=== PATIENT | male | born 1995 | race Caucasian/White ===

== ENCOUNTER 2018-04-22 13:22 | Emergency (ER) | payer OTHER ==
[~2018-04-22] VITALS: Ht 172.7 cm; Wt 86.4 kg
[2018-04-22] MEDS ORDERED: IBUP-1114 PO (13:28)
[2018-04-22 14:20] LABS: INFLUENZA A AMPLIFICATION NEGATIVE (NEGATIVE); INFLUENZA B AMPLIFICATION NEGATIVE (NEGATIVE)
[2018-04-22] MEDS ORDERED: AUGM875T28 PO (15:14)
[2018-04-22] MEDS ORDERED: PSEU30SY3 PO (15:19)
[2018-04-22] MEDS ORDERED: NETI1KIT (15:20)
[2018-04-22] MEDS ORDERED: FLON1SPR NARES (15:20)
[2018-04-22 15:26] VITALS: BP 116/75
== END 2018-04-22 15:31 | disposition home or self-care (01) ==
LOC: M ED 13:22
DX: J01.90 Acute sinusitis, unspecified (principal)

== ENCOUNTER 2018-05-27 01:32 | Emergency (ER) | payer OTHER ==
[~2018-05-27] VITALS: Ht 172.7 cm; Wt 86.4 kg
[~2018-05-27 01:32] MED LIST: AUGM875T28 PO; FLON1SPR NARES; IBUP-1114 PO; NETI1KIT; PSEU30SY3 PO
--- NOTE | 2018-05-27 02:38 | REPVR ---
EXAM: CT Head Without Contrast EXAM DATE/TIME: 05/27/2018 2:00 AM CLINICAL HISTORY: 23 years old, male; Injury or trauma; Fall; Additional info: Syncopal episode TECHNIQUE: Imaging protocol: Axial computed tomography images of the head/brain without contrast. Radiation optimization: All CT scans at this facility use at least one of these dose optimization techniques: automated exposure control; mA and/or kV adjustment per patient size (includes targeted exams where dose is matched to clinical indication); or iterative reconstruction. COMPARISON: No relevant prior studies available. FINDINGS: Brain: Normal. No hemorrhage. No significant white matter disease. No edema. Ventricles: Normal. No ventriculomegaly. Bones/joints: Asymmetry of the calvarium consistent with variant with thinning and outward protrusion of the anterior left parietal bone adjacent to the coronal suture. Sinuses: Visualized sinuses are unremarkable. No acute sinusitis. Mastoid air cells: Visualized mastoid air cells are unremarkable. No mastoid effusion. Soft tissues: Unremarkable. IMPRESSION: Negative noncontrast head CT. Electronically signed by: Cachorro Delacruz On 05/27/2018 02:38:21 AM
[2018-05-27 03:03] LABS: BASO # 0.1 10^3/uL (0.0-0.2); BASO % 1.2 % (0.0-1.0); EOS # 0.3 10^3/uL (0.0-0.50); EOS % 3.9 % (0.0-3.0); HEMATOCRIT 44.8 % (42.0-52.0); HEMOGLOBIN 15.1 g/dl (13.5-17.5); LYMPH # 3.4 10^3/uL (1.5-6.5); LYMPH % 40.6 % (24.0-44.0); MEAN CORPUSCULAR HEMOGLOBIN 29.5 pg (27.0-33.0); MEAN CORPUSCULAR HGB CONC 33.7 g/dl (32.0-36.5); MEAN CORPUSCULAR VOLUME 87.7 fl (80.0-96.0); MONO # 0.7 10^3/uL (0.0-0.8); MONO % 8.9 % (0.0-5.0); NEUTROPHILS # 3.8 10^3/uL (1.8-7.7); NEUTROPHILS % 45.2 % (36.0-66.0); PLATELET COUNT, AUTOMATED 224 10^3/uL (150-450); RED BLOOD COUNT 5.11 10^6/uL (4.30-6.10); WHITE BLOOD COUNT 8.3 10^3/uL (4.0-10.0)
[2018-05-27 03:40] LABS: BLOOD UREA NITROGEN 16 MG/DL (7-18); CALCIUM LEVEL 8.7 MG/DL (8.5-10.1); CARBON DIOXIDE LEVEL 30 MEQ/L (21-32); CHLORIDE LEVEL 107 MEQ/L (98-107); CREATININE FOR GFR 1.08 MG/DL (0.70-1.30); ETHYL ALCOHOL (ETHANOL) < 0.003 % (0.000-0.010); GLOMERULAR FILTRATION RATE > 60.0 (>60); GLUCOSE, FASTING 100 MG/DL (70-100); POTASSIUM SERUM 3.9 MEQ/L (3.5-5.1); SODIUM LEVEL 143 MEQ/L (136-145)
[2018-05-27 03:53] LABS: AMPHETAMINES LEVEL URINE NEGATIVE (NEGATIVE); BARBITURATES URINE NEGATIVE (NEGATIVE); BENZODIAZEPINES URINE NEGATIVE (NEGATIVE); CANNABINOIDS URINE NEGATIVE (NEGATIVE); COCAINE METABOLITE URINE NEGATIVE (NEGATIVE); METHADONE URINE NEGATIVE (NEGATIVE); OPIATES URINE NEGATIVE (NEGATIVE); PHENCYCLIDINE URINE NEGATIVE (NEGATIVE)
[2018-05-27] MEDS ORDERED: NEOSPORIN OINT 0.9 GM PKT (FLOOR STOCK) TOP ONE (06:15)
[2018-05-27] MEDS ORDERED: ACETAMINOPHEN TAB 650MG DOSE (2X325MG) PO ONE (06:15)
[2018-05-27 06:45] VITALS: BP 100/54
--- NOTE | 2018-05-27 07:37 | ECGEPIP ---
Stationary ECG Study [facility] - ED Test Date: 2018-05-27 Pat Name: CRAIG HINTON Department: Room: - Gender: M Hourly Sign Language Interpreter: gt : 1995 Requested By: RUCHI CALZADA Order Number: [id number] Reading MD: Brandon Egan Measurements Intervals [place] Rate: 75 P: 25 WY: 131 QRS: 14 QRSD: 102 T: 14 QT: 355 QTc: 399 Interpretive Statements SINUS RHYTHM WITH MARKED SINUS ARRHYTHMIA BENIGN EARLY REPOLARIZATION NO PRIORS FOR COMPARISON Electronically Signed On 05-27-2018 7:37:12 EDT by Brandon Egan
== END 2018-05-27 07:10 | disposition home or self-care (01) ==
LOC: M ED 01:32
DX: S09.90XA Unspecified injury of head, initial encounter (principal); X58.XXXA Exposure to other specified factors, initial encounter; Y92.89 Other specified places as the place of occurrence of the external cause
CPT/HCPCS: 36415; 70450; 80048; 80307; 84443; 85025; 93005; 93041; 94760; 99285; G0480

== ENCOUNTER 2018-08-28 21:36 | Emergency (ER) | payer OTHER ==
[~2018-08-28] VITALS: Ht 175.3 cm; Wt 86.4 kg
[2018-08-28] MEDS ORDERED: AMIT50TA PO (21:41)
[2018-08-28] MEDS ORDERED: diphenhydrAMINE INJ 50MG/ML VIAL (J1200) IV STA (22:37)
[2018-08-28] MEDS ORDERED: METOCLOPRAMIDE INJ 10MG/2ML VIAL (J2765) IV ONE (22:45)
[2018-08-28] MEDS ORDERED: NS 1,000 ML IV ONE (22:45)
[2018-08-28] MEDS ORDERED: KETOROLAC 30 MG/ML VIAL (J1885) IV ONE (22:45)
--- NOTE | 2018-08-28 23:04 | REPVR ---
EXAM: CT Head Without Contrast EXAM DATE/TIME: 08/28/2018 10:36 PM CLINICAL HISTORY: 23 years old, male; Pain; Headache TECHNIQUE: Imaging protocol: Axial computed tomography images of the head without contrast. Radiation optimization: All CT scans at this facility use at least one of these dose optimization techniques: automated exposure control; mA and/or kV adjustment per patient size (includes targeted exams where dose is matched to clinical indication); or iterative reconstruction. COMPARISON: CT Head without contrast 05/27/2018 2:01 AM FINDINGS: Brain: No CT evidence of acute intracranial hemorrhage or acute territorial infarction. No significant mass effect or midline shift. Basal cisterns patent. Ventricles: Normal in size and configuration. Bones/joints: No acute osseous abnormality. Unchanged focal thinning and outward bowing of the left temporal calvarium. Sinuses: Grossly unremarkable. Mastoid air cells: Grossly unremarkable. Soft tissues: Grossly unremarkable. IMPRESSION: No CT evidence of acute intracranial pathology. Additional findings, as above. Electronically signed by: Martir Matthews On 08/28/2018 23:03:48 PM
[2018-08-28] MEDS ORDERED: REGL10TA6 PO (23:44)
[2018-08-29 00:09] VITALS: BP 115/55
== END 2018-08-29 00:15 | disposition home or self-care (01) ==
LOC: M ED 21:36
DX: R51 Headache (principal); Z87.828 Personal history of other (healed) physical injury and trauma; Z79.899 Other long term (current) drug therapy
CPT/HCPCS: 70450; 96374; 96375; 99284; J1200; J1885; J2765